=== PATIENT | female | born 1965 | race Caucasian/White ===

== ENCOUNTER 2016-12-05 07:22 | Day surgery (SDC) | payer MEDICAID ==
[2016-12-05 07:46] VITALS: BMI 25.4
[2016-12-05 07:57] VITALS: O2SAT 100
[2016-12-05] MEDS ORDERED: Lactated Ringer's 500 ML IV SCH (08:30)
[2016-12-05] MEDS ORDERED: Propofol 10 mg/ml Inj (20 ML) ONE (09:36)
[2016-12-05] MEDS ORDERED: Lidocaine Hydrochloride 5 ML INJ ONE (09:36)
[2016-12-05 10:26] VITALS: TEMP 97.8
[2016-12-05 11:10] VITALS: BP 122/73; PULSE 68; RESP 15
== END 2016-12-05 11:08 | disposition home or self-care (01) ==
LOC: C.ENDO 07:22
PROVIDERS: ATTEND Internal Medicine Gastroenterology
DX: K21.9 Gastro-esophageal reflux disease without esophagitis (principal)
CPT/HCPCS: 43235; 82948; J2704; J7120